=== PATIENT | female | born 1975 | race Caucasian/White ===

== ENCOUNTER 2017-05-13 20:21 | Emergency (ER) | payer OTHER ==
[~2017-05-13] VITALS: Ht 152.4 cm; Wt 67.2 kg
[~2017-05-13 20:21] MED LIST: ACET325T96 PO; MTR600X PO; OXYC5TAB PO; PRENTAB26 PO; PRLSR20 PO
[2017-05-13 20:25] VITALS: TEMP 36.7; Ht 152.4 cm; Wt 67.2 kg
[2017-05-13] MEDS ORDERED: DiphenhydrAMINE HCL 50 MG/ML VIAL IV STA (20:38)
[2017-05-13] MEDS ORDERED: PROCHLORPERAZINE 5 MG/ML 2 ML VIAL IV STA (20:38)
[2017-05-13] MEDS ORDERED: IBUP-103 PO (20:42)
[2017-05-13 20:51] VITALS: O2SAT 98
[2017-05-13 21:04] LABS: BASO % 0.6 %; BASO ABS # 0.06 K/uL (0-0.2); COMPLETE YES; HEMATOCRIT 41.3 % (37-47); IG% 0.3 %; LYMPH % 31.7 %; LYMPH ABS # 3.14 K/uL (1.2-3.4); MEAN CELL VOLUME 88.2 fL (80-100); MEAN CORPUSCULAR HGB CONC 35.1 g/dl (32-36); MEAN PLATELET VOLUME 9.4 fL (7.4-10.4); MONO % 7.6 %; NEUT % 57.8 %; PLATELET COUNT 307 K/uL (130-400); RED BLOOD COUNT 4.68 M/uL (4.2-5.4); WHITE BLOOD COUNT 9.91 K/uL (4.8-10.8)
[2017-05-13 21:14] LABS: PARTIAL THROMBOPLASTIN RATIO 1.1; PROTHROMBIN TIME (PATIENT) 10.4 SECONDS (9.0-12.0)
[2017-05-13 21:18] LABS: BUN/CREATININE RATIO 11.7 (10-20); CALCIUM 8.6 mg/dl (8.5-10.1); CREATININE 1.45 mg/dl (0.60-1.20); POTASSIUM 3.4 mmol/L (3.5-5.1)
--- NOTE | 2017-05-13 21:20 | DIAGNOSTIC IMAGING REPORT ---
CT SCAN OF THE BRAIN WITHOUT IV CONTRAST CLINICAL HISTORY: Headache. Hypertension. COMPARISON STUDY: No priors. TECHNIQUE: Unenhanced axial CT scan of the brain is performed from the vertex to the skull base. A dose lowering technique was utilized adhering to the principles of ALARA. CT DOSE: 537.48 mGy.cm FINDINGS: Brain parenchyma: The brain parenchyma is normal in appearance. There is no hemorrhage, mass effect, or evidence of acute territorial ischemia by CT criteria. Luque-white matter is preserved. No extra-axial fluid collection is seen. Ventricles, sulci, cisterns: Normal in configuration. Intracranial vasculature: The visualized intracranial vasculature at the skull base is normal in appearance. Calvarium: Unremarkable. Sinuses and mastoids: The visualized paranasal sinuses are clear. The mastoid air cells are well pneumatized. Orbits: The bony orbits are grossly intact. IMPRESSION: No acute intracranial abnormality. Electronically signed by: Vin Infante M.D. 05/13/2017 9:19 PM Dictated Date/Time: 05/13/2017 9:18 PM
[2017-05-13 21:41] VITALS: BP 142/102; PULSE 68
--- NOTE | 2017-05-13 21:53 | EMERGENCY ROOM VISIT NOTE ---
History Report prepared by Mario: Jaren Nice Under the Supervision of: Dr. Jevon Hicks M.D. First contact with patient: 20:32 Chief Complaint: HYPERTENSION Stated Complaint: BAD HEADACHE, ELEVATED BP 183/136 History of Present Illness The patient is a 41 year old female who presents to the Emergency Room with complaints of a headache that began this morning, 10 hours ago. She describes the pain as dull and diffusely spread along the entire top of her head down to her neck. She denies ever having a personal or family history of migraines. It is not the worst headache of her life. She had a similar headache years ago. She notes that a couple of years ago she had an issue with a control medication making her hypertensive. She normalized once she stopped the medication. Yesterday, she saw her PCP who found that her blood pressure was mildly elevated at 140/90. She was told to monitor it. This morning she began to experience her headache, but she believed it to be caffeine related. She had a cup of coffee at 1130 and another at 1230 with only a mild relief of her pain. She then took Ibuprofen which helped as well, but her headache eventually came back. She denies any fevers, chest pain, numbness, weakness, abnormal urinary symptoms, or trouble walking or speaking. She notes that she is mildly short of breath, but thinks that it may be anxiety related. She is also experiencing pressure behind her eyes. She received a tubal ligation with her last child and denies any chance of being . Source of History: patient Onset: this morning, 10 hours ago Position: head Symptom Intensity: moderate Quality: dull Timing: waxes/wanes Modifying Factors (Relieving): ibuprofen, other (Caffeine) Associated Symptoms: + SOB, No fevers, No chest pain, No urinary symptoms, No weakness, No numbness Review of Systems See HPI for pertinent positives & negatives. A total of 10 systems reviewed and were otherwise negative. Past Medical & Surgical Medical Problems: (1) No significant medical problems (2) Surgical Problems: (1) No significant past surgical history Family History No family history of migraines. Social History Smoking Status: Current Every Day Smoker Alcohol Use: none Marital Status: Occupation Status: employed Current/Historical Medications Scheduled PRN Ibuprofen Tab (Advil), 400 MG PO UD PRN for Pain Allergies Coded Allergies: Sulfa Drugs (Verified Allergy, Severe, SEIZURES, 04/29/16) Food (Unverified Allergy, Unknown, RODRIGO DELIGHT DRINK-HIVES AND ITCHING, 04/29/16) Aspirin (Verified Adverse Reaction, Intermediate, INCREASED BLEEDING, 04/29) INCREASED BLEEDING Physical Exam Vital Signs Date Time Temp Pulse Resp B/P (MAP) Pulse Ox O2 Delivery O2 Flow Rate FiO2 05/13/17 21:41 68 142/102 05/13/17 21:20 72 16 151/99 05/13/17 20:59 180/128 05/13/17 20:51 78 16 178/135 98 Room Air 05/13/17 20:39 83 05/13/17 20:25 36.7 100 18 180/117 97 Room Air Physical Exam Constitutional: Vital signs reviewed. Hypertensive. Eyes: Pupils are equal round reactive to light. Conjunctiva are noninjected. ENT: Pharynx is clear without erythema or exudate. Mucous membranes are moist. Neck supple without meningeal signs. Respiratory: Clear to auscultation bilaterally. Breath sounds are equal bilaterally. Cardiovascular: Regular rate and rhythm. No rubs or gallops. GI: Soft, nondistended and nontender. Bowel sounds are present. Musculoskeletal: No peripheral edema. No lower extremity tenderness. Integumentary: No cyanosis. Neurological: The patient is awake and alert. Cranial nerves II-XII are intact. Motor is 5 out of 5 all extremities. Sensation is intact to light touch all extremities. Normal speech. No pronator drift. Psychiatric: Normal affect. Medical Decision & Procedures ER Provider Diagnostic Interpretation: Radiology results as stated below per my review and the radiologist's interpretation: CT SCAN OF THE BRAIN WITHOUT IV CONTRAST CLINICAL HISTORY: Headache. Hypertension. COMPARISON STUDY: No priors. TECHNIQUE: Unenhanced axial CT scan of the brain is performed from the vertex to the skull base. A dose lowering technique was utilized adhering to the principles of ALARA. CT DOSE: 537.48 mGy.cm FINDINGS: Brain parenchyma: The brain parenchyma is normal in appearance. There is no hemorrhage, mass effect, or evidence of acute territorial ischemia by CT criteria. Luque-white matter is preserved. No extra-axial fluid collection is seen. Ventricles, sulci, cisterns: Normal in configuration. Intracranial vasculature: The visualized intracranial vasculature at the skull base is normal in appearance. Calvarium: Unremarkable. Sinuses and mastoids: The visualized paranasal sinuses are clear. The mastoid air cells are well pneumatized. Orbits: The bony orbits are grossly intact. IMPRESSION: No acute intracranial abnormality. Electronically signed by: Vin Infante M.D. 05/13/2017 9:19 PM Dictated Date/Time: 05/13/2017 9:18 PM Laboratory Results 05/13/17 20:50 Red Blood Count 4.68, Mean Corpuscular Volume 88.2, Mean Corpuscular Hemoglobin 31.0, Mean Corpuscular Hemoglobin Concent 35.1, Mean Platelet Volume 9.4, Neutrophils (%) (Auto) 57.8, Lymphocytes (%) (Auto) 31.7, Monocytes (%) (Auto) 7.6, Eosinophils (%) (Auto) 2.0, Basophils (%) (Auto) 0.6, Neutrophils # (Auto) 5.73, Lymphocytes # (Auto) 3.14, Monocytes # (Auto) 0.75, Eosinophils # (Auto) 0.20, Basophils # (Auto) 0.06 05/13/17 20:50 Test 05/13/17 20:50 05/13/17 20:52 White Blood Count 9.91 K/uL (4.8-10.8) Red Blood Count 4.68 M/uL (4.2-5.4) Hemoglobin 14.5 g/dL (12.0-16.0) Hematocrit 41.3 % (37-47) Mean Corpuscular Volume 88.2 fL (80-100) Mean Corpuscular Hemoglobin 31.0 pg (25-34) Mean Corpuscular Hemoglobin Concent 35.1 g/dl (32-36) Platelet Count 307 K/uL (130-400) Mean Platelet Volume 9.4 fL (7.4-10.4) Neutrophils (%) (Auto) 57.8 % Lymphocytes (%) (Auto) 31.7 % Monocytes (%) (Auto) 7.6 % Eosinophils (%) (Auto) 2.0 % Basophils (%) (Auto) 0.6 % Neutrophils # (Auto) 5.73 K/uL (1.4-6.5) Lymphocytes # (Auto) 3.14 K/uL (1.2-3.4) Monocytes # (Auto) 0.75 K/uL (0.11-0.59) Eosinophils # (Auto) 0.20 K/uL (0-0.5) Basophils # (Auto) 0.06 K/uL (0-0.2) RDW Standard Deviation 40.8 fL (36.4-46.3) RDW Coefficient of Variation 12.7 % (11.5-14.5) Immature Granulocyte % (Auto) 0.3 % Immature Granulocyte # (Auto) 0.03 K/uL (0.00-0.02) Prothrombin Time 10.4 SECONDS (9.0-12.0) Prothromb Time International Ratio 1.0 (0.9-1.1) Activated Partial Thromboplast Time 28.4 SECONDS (21.0-31.0) Partial Thromboplastin Ratio 1.1 Anion Gap 7.0 mmol/L (3-11) Est Creatinine Clear Calc Drug Dose 44.6 ml/min Estimated GFR () 52.4 Estimated GFR (Non- 45.3 BUN/Creatinine Ratio 11.7 (10-20) Calcium Level 8.6 mg/dl (8.5-10.1) Bedside Troponin I < 0.030 ng/ml (0-0.045) Laboratory results as reviewed by me. Medications Administered Medications (Trade) Dose Ordered Sig/Darrian Route Start Time Stop Time Status Last Admin Dose Admin Prochlorperazine Edisylate (Compazine Inj) 10 mg NOW STAT IV 05/13/17 20:38 05/13/17 20:40 DC 05/13/17 20:57 10 MG Diphenhydramine HCl (Benadryl Inj) 50 mg NOW STAT IV 05/13/17 20:38 05/13/17 20:40 DC 05/13/17 20:57 50 MG ECG Indication: other (Hypertension) Rate (beats per minute): 81 Rhythm: normal sinus Findings: no acute ischemic change, no ectopy ED Course 2031: The patient was evaluated in room B2. A complete history and physical exam was performed. 2037: Ordered Benadryl Inj 50 mg IV, Compazine Inj 10 mg IV 2136: Upon reevaluation, the patient appeared to have improvement of her symptoms. Her headache is almost gone. However, she notes that she is feeling strange from the Compazine. I discussed aimee's findings with her. She verbalized agreement of the treatment plan. She was discharged home. Medical Decision This is a 41-year-old female who presents with headache and elevated blood pressure. Differential diagnosis includes migraine headache, tension headache, intracranial mass, intracranial hemorrhage, hypertension. I did perform a limited focused review of portions of the patient's old chart on the electronic medical record. The patient has had no recent pertinent visits to this hospital. I did evaluate the patient as noted above. The patient is presenting with a headache and elevated blood pressures. It is not the worst headache of her life. It started this morning and has responded to caffeine as well as Motrin. She is here today because her headache seems to be recurring and she has had elevated blood pressure. IV access was established. I did treat patient with IV Compazine and Benadryl. I did order and personally review the patient's 12- lead EKG as described above. There are no acute ischemic changes. I did order and review the patient's blood work as noted in the electronic medical record. She has minimal hypokalemia but otherwise her labs are unremarkable. I did order a CT of the head. I did review the images myself as well as the radiology report as described above. There is no evidence of bleed or acute abnormality. I did reassess the patient. She is feeling much better and her headache is almost resolved. She does have continued discomfort which she cannot described from the Compazine itself. Her blood pressure still remains a little high which is likely due to the Compazine making her feel strange. I did recommend she have her blood pressure checked by her doctor in the office when she is more comfortable. She was discharged in good condition. Should she have continued feelings of discomfort from the Compazine she could take additional Benadryl prior to going to bed. Medication Reconcilliation Current Medication List: was personally reviewed by me Blood Pressure Screening Patient's blood pressure: Elevated blood pressure Blood pressure disposition: Referred to PCP Impression Primary Impression: Headache Additional Impression: Elevated blood pressure reading Scribe Attestation The scribe's documentation has been prepared under my direct and personally reviewed by me in its entirety. I confirm that the note above accurately reflects all work, treatment, procedures, and medical decision making performed by me. Departure Information Dispostion Home / Self-Care Referrals Tenzin Juárez M.D. (PCP) Forms HOME CARE DOCUMENTATION FORM, IMPORTANT VISIT INFORMATION, WORK / SCHOOL INSTRUCTIONS Patient Instructions ED Hypertension Poss, Headache Pain, My [facility] Additional Instructions You have been examined and treated today on an emergency basis only. This is not a substitute for, or an effort to provide, complete comprehensive medical care. It is impossible to recognize and treat all injuries or illnesses in a single emergency department visit. It is therefore important that you follow up closely with your physician. Call as soon as possible for an appointment. Return for worsening symptoms or if you develop fever, numbness or weakness on one side of your body, difficulties with your speech or walking, or any other concerning symptoms. Problem Qualifiers Primary Impression: Headache Headache type: unspecified Headache chronicity pattern: acute headache Intractability: not intractable Qualified Codes: R51 - Headache
== END 2017-05-13 21:42 | disposition home or self-care (01) ==
LOC: C.EDB 20:22
DX: R51 Headache (principal); R03.0 Elevated blood-pressure reading, without diagnosis of hypertension; F17.210 Nicotine dependence, cigarettes, uncomplicated

== ENCOUNTER 2017-05-15 16:37 | Emergency (ER) | payer OTHER ==
[~2017-05-15] VITALS: Ht 152.4 cm; Wt 67.7 kg
[~2017-05-15 16:37] MED LIST changes: -ACET325T96 PO; +IBUP-103 PO; -MTR600X PO; -OXYC5TAB PO; -PRENTAB26 PO; -PRLSR20 PO
[2017-05-15 16:42] VITALS: TEMP 36.8; Ht 152.4 cm; Wt 67.7 kg
[2017-05-15] MEDS ORDERED: METOCLOPRAMIDE HCL INJ 5 MG/ML 2 ML VIAL IV STA (16:53)
[2017-05-15] MEDS ORDERED: LACTATED RINGER'S 1000ML 1,000 ML IV STA (16:53)
[2017-05-15] MEDS ORDERED: DiphenhydrAMINE HCL 50 MG/ML VIAL IV STA (16:53)
[2017-05-15] MEDS ORDERED: FAMOTIDINE 20MG/5ML IV PUSH IV STA (17:04)
--- NOTE | 2017-05-15 17:05 | EMERGENCY ROOM VISIT NOTE ---
History Report prepared by Mario: Lena Candelaria Under the Supervision of: Dr. Alexy Hernandez M.D. First contact with patient: 16:50 Chief Complaint: HYPERTENSION Stated Complaint: ELEVATED BLOOD PRESSURE, ARORA,HEARTBURN,CHEST PAIN History of Present Illness The patient is a 41 year old female who presents to the Emergency Room with complaints of constant hypertension beginning 2.5 hours ago. The patient states that she was seen here 2 days ago for a headache and hypertension. She reports that her symptoms were relieved and she felt better yesterday and this morning but her symptoms returned this afternoon. She notes that today she had a headache that started in the back of her head and moves forward. She states that she called her PCPs office today when her symptoms started and they were concerned with her blood pressure that was 162/122. The patient states that she has no history of migraines. She complains of shortness of breath with her headaches, lightheadedness, heartburn that was present 2 days ago, and a cough. She denies any fever, chills, congestion, urinary symptoms, changes in bowel movements, nausea, and vomiting. The patient notes that she has been feeling jittery since the onset of her headache. Source of History: patient Onset: this afternoon Position: other (global) Symptom Intensity: 162/122 Quality: other (hypertension) Timing: constant Associated Symptoms: + headache, + cough, + chest pain, + SOB, No fevers, No chills, No nausea, No vomiting, No urinary symptoms Review of Systems See HPI for pertinent positives and negatives. A total of ten systems were reviewed and were otherwise negative. Past Medical & Surgical Medical Problems: (1) No significant medical problems (2) Surgical Problems: (1) No significant past surgical history Family History No pertinent family history stated. Social History Smoking Status: Current Every Day Smoker Alcohol Use: none Marital Status: Occupation Status: employed Current/Historical Medications No Active Prescriptions or Reported Meds Allergies Coded Allergies: Sulfa Drugs (Verified Allergy, Severe, SEIZURES, 05/15/17) Food (Unverified Allergy, Unknown, RODRIGO DELIGHT DRINK-HIVES AND ITCHING, 04/29/16) Aspirin (Verified Adverse Reaction, Intermediate, INCREASED BLEEDING, ) INCREASED BLEEDING Physical Exam Vital Signs Date Time Temp Pulse Resp B/P (MAP) Pulse Ox O2 Delivery O2 Flow Rate FiO2 05/15/17 21:34 17 150/110 97 05/15/17 20:37 76 15 140/98 94 Room Air 05/15/17 19:49 82 19 146/112 98 05/15/17 18:01 74 19 143/101 98 Room Air 05/15/17 17:02 93 05/15/17 16:42 36.8 100 18 165/121 98 Room Air Physical Exam GENERAL: Awake, alert, well-appearing, in no distress HENT: Normocephalic, atraumatic. Dry mucous membranes. EYES: Normal conjunctiva. Sclera non-icteric. NECK: Supple. No nuchal rigidity. FROM. No JVD. RESPIRATORY: Clear to auscultation. CARDIAC: Regular rate, normal rhythm. Extremities warm and well perfused. Pulses equal. ABDOMEN: Soft, non-distended. No tenderness to palpation. No rebound or guarding. No masses. RECTAL: Deferred. MUSCULOSKELETAL: Chest examination reveals no tenderness. The back is symmetrical on inspection without obvious abnormality. There is no CVA tenderness to palpation. No joint edema. LOWER EXTREMITIES: Calves are equal size bilaterally and non-tender. No edema. No discoloration. NEURO: Normal sensorium. No sensory or motor deficits noted. Normal cerebellar function with [id number], alternating palms, [id number]. SKIN: No rash or jaundice noted. Medical Decision & Procedures ER Provider Diagnostic Interpretation: X-ray: Per my interpretation, radiologist review. CHEST ONE VIEW PORTABLE FINDINGS: The lungs are clear. Cardiac silhouette is normal in size. No pleural effusions. No pneumothorax. Dextroscoliosis of the thoracic spine, unchanged. IMPRESSION: No significant change compared to the prior study. No acute process. Electronically signed by: Bud Cooper M.D. 05/15/2017 5:52 PM Dictated Date/Time: 05/15/2017 5:51 PM Laboratory Results 05/15/17 17:15 Red Blood Count 4.93, Mean Corpuscular Volume 88.8, Mean Corpuscular Hemoglobin 31.4, Mean Corpuscular Hemoglobin Concent 35.4, Mean Platelet Volume 9.6, Neutrophils (%) (Auto) 65.1, Lymphocytes (%) (Auto) 26.2, Monocytes (%) (Auto) 5.9, Eosinophils (%) (Auto) 1.8, Basophils (%) (Auto) 0.5, Neutrophils # (Auto) 7.17, Lymphocytes # (Auto) 2.88, Monocytes # (Auto) 0.65, Eosinophils # (Auto) 0.20, Basophils # (Auto) 0.05 05/15/17 17:15 Test 05/15/17 17:10 05/15/17 17:15 05/15/17 19:19 Urine Color YELLOW Urine Appearance CLEAR (CLEAR) Urine pH 6.5 (4.5-7.5) Urine Specific Mcfaddin 1.009 (1.000-1.030) Urine Protein NEG (NEG) Urine Glucose (UA) NEG (NEG) Urine Ketones NEG (NEG) Urine Occult Blood NEG (NEG) Urine Nitrite NEG (NEG) Urine Bilirubin NEG (NEG) Urine Urobilinogen NEG (NEG) Urine Leukocyte Esterase NEG (NEG) White Blood Count 11.00 K/uL (4.8-10.8) Red Blood Count 4.93 M/uL (4.2-5.4) Hemoglobin 15.5 g/dL (12.0-16.0) Hematocrit 43.8 % (37-47) Mean Corpuscular Volume 88.8 fL (80-100) Mean Corpuscular Hemoglobin 31.4 pg (25-34) Mean Corpuscular Hemoglobin Concent 35.4 g/dl (32-36) Platelet Count 363 K/uL (130-400) Mean Platelet Volume 9.6 fL (7.4-10.4) Neutrophils (%) (Auto) 65.1 % Lymphocytes (%) (Auto) 26.2 % Monocytes (%) (Auto) 5.9 % Eosinophils (%) (Auto) 1.8 % Basophils (%) (Auto) 0.5 % Neutrophils # (Auto) 7.17 K/uL (1.4-6.5) Lymphocytes # (Auto) 2.88 K/uL (1.2-3.4) Monocytes # (Auto) 0.65 K/uL (0.11-0.59) Eosinophils # (Auto) 0.20 K/uL (0-0.5) Basophils # (Auto) 0.05 K/uL (0-0.2) RDW Standard Deviation 41.1 fL (36.4-46.3) RDW Coefficient of Variation 12.8 % (11.5-14.5) Immature Granulocyte % (Auto) 0.5 % Immature Granulocyte # (Auto) 0.05 K/uL (0.00-0.02) Anion Gap 9.0 mmol/L (3-11) Est Creatinine Clear Calc Drug Dose 104.6 ml/min Estimated GFR () 131.6 Estimated GFR (Non- 113.6 BUN/Creatinine Ratio 22.3 (10-20) Calcium Level 8.7 mg/dl (8.5-10.1) Magnesium Level 2.2 mg/dl (1.8-2.4) Total Bilirubin 0.2 mg/dl (0.2-1) Direct Bilirubin < 0.1 mg/dl (0-0.2) Aspartate Amino Transf (AST/SGOT) 15 U/L (15-37) Alanine Aminotransferase (ALT/SGPT) 28 U/L (12-78) Alkaline Phosphatase 129 U/L (45-117) Total Protein 8.2 gm/dl (6.4-8.2) Albumin 4.1 gm/dl (3.4-5.0) Lipase 158 U/L (73-393) Troponin I 0.018 ng/ml (0-0.045) Laboratory results reviewed by me Medications Administered Medications (Trade) Dose Ordered Sig/Darrian Route Start Time Stop Time Status Last Admin Dose Admin Lactated Ringer's 1,000 ml @ 999 mls/hr Q1H1M STAT IV 05/15/17 16:53 05/15/17 17:53 DC 05/15/17 17:26 999 MLS/HR Metoclopramide HCl (Reglan Inj) 10 mg NOW STAT IV 05/15/17 16:53 05/15/17 16:59 DC 05/15/17 17:26 10 MG Diphenhydramine HCl (Benadryl Inj) 25 mg NOW STAT IV 05/15/17 16:53 05/15/17 16:59 DC 05/15/17 17:26 25 MG Famotidine (Pepcid 20mg Iv Push) 20 mg NOW STAT IV 05/15/17 17:04 05/15/17 17:05 DC 05/15/17 17:26 20 MG ECG Indication: chest pain Rate (beats per minute): 84 Rhythm: normal sinus Findings: no acute ischemic change, other (normal axis) ED Course 1649: The patient was evaluated in room A3. A complete history and physical exam was performed. 1652: Benadryl Inj 25mg IV, Reglan Inj 10mg IV, Lactated Ringer's 1000ml @ 999mls/hr IV. 1703: Famotidine 20mg IV. 2118: I reevaluated and updated the patient. 2136: I reevaluated the patient. Discussed results and discharge instructions: She verbalized understanding and agreement. The patient is ready for discharge. Medical Decision I reviewed the patient's past medical history, medications, and the nursing notes as described above. The patient's presentation and history were concerning for tension headache, viral syndrome, gastritis, dehydration, electrolyte abnormalities, ACS, pneumonia, bronchitis. 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 Seen in ED 2 days ago for similar sx with negative CT head and labs. On arrival the patient is in NAD, with SBP 160s but VS otherwise stable. EKG unremarkable. Trop negative. Labs otherwise unremarkable. CXR negative. Sx resolved after IVF and reglan. Delta 2 hour trop marginally increased but 0.018, still wnl. Repeat EKG unchanged. Patient well-appearing after tx. Findings and plan for follow-up reviewed with patient. Patient agreeable and d/c'd per discharge instructions. Medication Reconcilliation Current Medication List: was personally reviewed by me Blood Pressure Screening Patient's blood pressure: Elevated blood pressure Blood pressure disposition: Elevated BP felt to be situational Impression Primary Impression: Headache Additional Impression: Chest pain Scribe Attestation The scribe's documentation has been prepared under my direction and personally reviewed by me in its entirety. I confirm that the note above accurately reflects all work, treatment, procedures, and medical decision making performed by me. Departure Information Dispostion Home / Self-Care Prescriptions No Active Prescriptions or Reported Meds Referrals Tenzin Juárez M.D. (PCP) Patient Instructions ED Chest Pain Atypical Unkn Cause, ED Headache Tension, My [facility] Additional Instructions Please follow up with your primary care physician in the next 1-3 days for re- evaluation and to discuss your blood pressure, which was elevated today. The cause of your symptoms is unclear at this time but may have been due to mild dehydration. Otherwise, your exam, EKG, chest xray, and lab results did not show signs of an emergent condition at this time. Return to the emergency department for worsening symptoms as described in the accompanying instructions. Problem Qualifiers
[2017-05-15 17:28] LABS: BASO % 0.5 %; BASO ABS # 0.05 K/uL (0-0.2); COMPLETE YES; EOS % 1.8 %; HEMATOCRIT 43.8 % (37-47); IG% 0.5 %; LYMPH % 26.2 %; LYMPH ABS # 2.88 K/uL (1.2-3.4); MEAN CELL VOLUME 88.8 fL (80-100); MEAN CORPUSCULAR HEMOGLOBIN 31.4 pg (25-34); MEAN CORPUSCULAR HGB CONC 35.4 g/dl (32-36); MEAN PLATELET VOLUME 9.6 fL (7.4-10.4); MONO % 5.9 %; NEUT % 65.1 %; PLATELET COUNT 363 K/uL (130-400); RED BLOOD COUNT 4.93 M/uL (4.2-5.4)
[2017-05-15 17:29] LABS: URINE APPEARANCE CLEAR (CLEAR); URINE BILIRUBIN NEG (NEG); URINE COLOR YELLOW; URINE NITRITE NEG (NEG); URINE PH 6.5 (4.5-7.5); URINE SPECIFIC GRAVITY 1.009 (1.000-1.030); UROBILINOGEN NEG (NEG); ZZUR CULT IF INDIC CLEAN CATCH NO
[2017-05-15 17:32] LABS: MANUAL MICROSCOPIC REQUIRED? NO; REVIEW REQ? NO
--- NOTE | 2017-05-15 17:53 | DIAGNOSTIC IMAGING REPORT ---
CHEST ONE VIEW PORTABLE HISTORY: Generalized abdominal pain. Atypical chest pain. COMPARISON: Chest 04/17/2016. FINDINGS: The lungs are clear. Cardiac silhouette is normal in size. No pleural effusions. No pneumothorax. Dextroscoliosis of the thoracic spine, unchanged. IMPRESSION: No significant change compared to the prior study. No acute process. Electronically signed by: Bud Cooper M.D. 05/15/2017 5:52 PM Dictated Date/Time: 05/15/2017 5:51 PM
[2017-05-15 17:56] LABS: ALKALINE PHOSPHATASE 129 U/L (45-117); ALT/SGPT 28 U/L (12-78); AST/SGOT 15 U/L (15-37); BLOOD UREA NITROGEN 14 mg/dl (7-18); BUN/CREATININE RATIO 22.3 (10-20); CALCIUM 8.7 mg/dl (8.5-10.1); CARBON DIOXIDE 23 mmol/L (21-32); CHLORIDE 102 mmol/L (98-107); CREATININE 0.62 mg/dl (0.60-1.20); GLUCOSE 89 mg/dl (70-99); MAGNESIUM 2.2 mg/dl (1.8-2.4); POTASSIUM 3.7 mmol/L (3.5-5.1); SODIUM 134 mmol/L (136-145)
[2017-05-15 20:37] VITALS: PULSE 76
[2017-05-15 21:34] VITALS: BP 150/110; O2SAT 97
== END 2017-05-15 21:35 | disposition home or self-care (01) ==
LOC: C.EDB 16:39 → C.EDA 21:35
DX: R51 Headache (principal); R07.9 Chest pain, unspecified; I10 Essential (primary) hypertension; F17.200 Nicotine dependence, unspecified, uncomplicated; Z88.2 Allergy status to sulfonamides; Z88.6 Allergy status to analgesic agent; Z91.018 Allergy to other foods